=== PATIENT | male | born 1945 | race Caucasian/White ===

== ENCOUNTER 2018-05-01 11:18 | Outpatient (CLI) | payer MEDICARE | END 2018-05-01 11:19 | disposition home or self-care (01) | LOC: CTENTCT 11:18 | PROVIDERS: ATTEND Specialist | DX: J32.8 Other chronic sinusitis (principal) | CPT/HCPCS: 70486 ==

== ENCOUNTER 2018-05-14 13:00 | Day surgery (SDC) | payer MEDICARE ==
[2018-05-13 12:47] VITALS: BMI 27.8
[2018-05-14] MEDS ORDERED: Oxymetazoline HCl 0.05% ( 15 ML ) ONE ×2 (16:03→16:42)
[2018-05-14 16:19] LABS: Hemoglobin 15.4 g/dL (14.0-18.0)
[2018-05-14 16:37] LABS: Anion Gap 12 mmol/L (10-20); BUN (Urea Nitrogen) 18 mg/dL (8.4-25.7); Calc. Creatinine Clearance 70 mL/min (70-130); Calcium 9.6 mg/dL (7.8-10.44); Carbon Dioxide 27 mmol/L (23-31); Chloride 95 mmol/L (98-107); Estimated GFR-MDRD 61; Glucose 90 mg/dL (83-110); Potassium 4.1 mmol/L (3.5-5.1); Sodium 130 mmol/L (136-145)
[2018-05-14] MEDS ORDERED: Lidocaine 1% w/Epinephrine 1:100K 20 ML VIAL ONE (16:42)
[2018-05-14] MEDS ORDERED: Fentanyl 100 MCG/2 ML VIAL ONE (16:43)
[2018-05-14] MEDS ORDERED: Lidocaine 1% PF 5 ML VIAL ONE (16:57)
[2018-05-14] MEDS ORDERED: Rocuronium Bromide 10 MG/ML (10ML VIAL) ONE (16:57)
[2018-05-14] MEDS ORDERED: Glycopyrrolate 0.2 MG/ML 5 ML SYRINGE ONE (16:57)
[2018-05-14] MEDS ORDERED: Ondansetron PF 4 MG/2 ML Vial ONE (16:57)
[2018-05-14] MEDS ORDERED: Dexamethasone 20 MG/5 ML VIAL ONE (16:57)
[2018-05-14] MEDS ORDERED: PROPOFOL 200 MG/20 ML VIAL ONE (16:57)
--- NOTE | 2018-05-14 17:58 | OP ---
DATE OF PROCEDURE: 05/14/2018 PREOPERATIVE DIAGNOSES: Chronic sinusitis, recurrent sinusitis, and nasal polyposis. POSTOPERATIVE DIAGNOSES: Chronic sinusitis, recurrent sinusitis, and nasal polyposis. PROCEDURES PERFORMED: 1. Bilateral nasal endoscopy with maxillary antrostomy with removal of tissue. 2. Bilateral nasal endoscopy with total ethmoidectomy. 3. Bilateral nasal endoscopy with sphenoidotomy. 4. Bilateral nasal endoscopy with frontal sinusotomy. PROCEDURE IN DETAIL: BILATERAL NASAL ENDOSCOPY WITH MAXILLARY ANTROSTOMY WITH REMOVAL OF TISSUE: The uncinate was then identified and the extent of the uncinate was appreciated by out-fracturing the uncinate with the ball-tip probe. We then used the sickle blade to disarticulate the uncinate from the lateral nasal wall. This was then removed with straight biting and upbiting punches with the remaining shrouds of mucosa and bony septum removed with the micro-debrider. The natural os of the maxillary sinus was then identified and enlarged with the maxillary punches and back biting forceps. BILATERAL NASAL ENDOSCOPY WITH TOTAL ETHMOIDECTOMY: The anterior face of the ethmoid bulla was entered and with the micro-debrider, dissection continued posteriorly to the ground lamella. The limits of dissection included the insertion of the middle turbinate, medial orbital wall, and base of skull. We similarly identified the frontal recess and removed shrouds of bone and debris in that region to obtain patency into the agger nasi region and frontal recess. We then entered the ground lamella and its anteroinferior aspect and proceeded posteriorly, opening the posterior ethmoid air-cell system. Again, the limits of dissection included the base of skull and medial orbital wall. BILATERAL NASAL ENDOSCOPY WITH SPHENOIDOTOMY: The anterior face of the sphenoid was identified and entered in its extreme anteroinferior aspect. A sphenoid punch was then used to enlarge the sphenoidotomy and no injury to the optic nerve or internal carotid artery occurred. BILATERAL NASAL ENDOSCOPY WITH FRONTAL SINUSOTOMY: Following the ethmoidectomy, we then turned our attention to the frontal nasal recess. The agger nasi cells were addressed and the frontal recess was exposed. The natural opening to the frontal sinus was identified. At this point, any obstructing shrouds of mucosa and bony fragments were removed with a curved microdebrider. The wound was then examined and found to be free of any obstructing debris. We then turned our attention to the contralateral side and performed a similar procedure again under endoscopic visualization using a 45-degree scope. We were able to visualize the frontal recess. Obstructing shrouds of mucosa and bone were removed with a microdebrider. The natural os of frontal sinus was identified and enlarged and irrigated. At this point, the frontal sinusotomy was completed and we turned to the next area of concern. Job ID: [id number]
[2018-05-14] MEDS ORDERED: traMADol HCl 50 MG TAB ONE (18:58)
== END 2018-05-14 19:52 | disposition home or self-care (01) ==
LOC: SDC 13:00
PROVIDERS: ATTEND Specialist
PROC: 09TV8ZZ Resection of Left Ethmoid Sinus, Via Natural or Artificial Opening Endoscopic (ICD-10-PCS; principal; 2018-05-14)
PROC: 09TU8ZZ Resection of Right Ethmoid Sinus, Via Natural or Artificial Opening Endoscopic (ICD-10-PCS; 2018-05-14)
PROC: 09BR8ZZ Excision of Left Maxillary Sinus, Via Natural or Artificial Opening Endoscopic (ICD-10-PCS; 2018-05-14)
PROC: 09BQ8ZZ Excision of Right Maxillary Sinus, Via Natural or Artificial Opening Endoscopic (ICD-10-PCS; 2018-05-14)
PROC: 099T8ZZ Drainage of Left Frontal Sinus, Via Natural or Artificial Opening Endoscopic (ICD-10-PCS; 2018-05-14)
PROC: 099W8ZZ Drainage of Right Sphenoid Sinus, Via Natural or Artificial Opening Endoscopic (ICD-10-PCS; 2018-05-14)
PROC: 099X8ZZ Drainage of Left Sphenoid Sinus, Via Natural or Artificial Opening Endoscopic (ICD-10-PCS; 2018-05-14)
PROC: 099S8ZZ Drainage of Right Frontal Sinus, Via Natural or Artificial Opening Endoscopic (ICD-10-PCS; 2018-05-14)
DX: J32.8 Other chronic sinusitis (principal); J34.2 Deviated nasal septum; J33.9 Nasal polyp, unspecified; M26.603 Bilateral temporomandibular joint disorder, unspecified; J30.1 Allergic rhinitis due to pollen; J30.81 Allergic rhinitis due to animal (cat) (dog) hair and dander; J30.89 Other allergic rhinitis; E78.00 Pure hypercholesterolemia, unspecified; I10 Essential (primary) hypertension; Z79.02 Long term (current) use of antithrombotics/antiplatelets; Z79.82 Long term (current) use of aspirin; Z79.899 Other long term (current) drug therapy; Z88.5 Allergy status to narcotic agent; Z98.890 Other specified postprocedural states
CPT/HCPCS: 36415; 80048; 85014; 85018; 93005; 93010; J1100; J2001; J2405; J2704; J3010

== ENCOUNTER 2018-05-17 21:22 | Inpatient (IN) | payer MEDICARE ==
[2018-05-17 21:52] LABS: Bilirubin Negative (Negative); Blood, Urine Negative (Negative); Clarity CLEAR (Clear); Glucose, Urine (Dipstick) Negative (Negative); Leukocyte Negative (Negative); Nitrite Negative (Negative); Protein, Urine (Dipstick) Negative (Neg-Trace); Specific Gravity, Urine 1.017 (1.002-1.036); Urobilinogen 0.2 mg/dL (0.2-1.0)
[2018-05-17 22:02] LABS: #Eosinphils 0.1 thou/uL (0.0-0.7); #Lymphocytes 1.4 thou/uL (1.20-3.40); #Monocytes 0.9 thou/uL (0.11-0.59); #Neutrophils 7.9 thou/uL (1.40-6.50); %Eosinophils 0.9 % (0.0-10.0); %Lymphocytes 13.6 % (21.0-51.0); %Monocytes 8.5 % (0.0-10.0); Hemoglobin 14.4 g/dL (14.0-18.0); Mean Corpuscular HGB CONC 35.6 g/dL (32.0-36.0); Mean Corpuscular Hemoglobin 32.4 pg (27.0-31.0); Mean Platelet Volume 5.9 fL (7.4-10.4); Platelet Count 269 thou/uL (130-400); RBC Distribution Width 11.1 % (11.5-14.5); Red Blood Cell (RBC) Count 4.45 mill/uL (4.70-6.10); White Blood Cell (WBC) Count 10.3 thou/uL (4.8-10.8)
[2018-05-17] MEDS ORDERED: Metoclopramide HCl 10 MG/2 ML VIAL ONE (22:17)
[2018-05-17] MEDS ORDERED: diphenhydrAMINE 50 MG/ML VIAL ONE (22:17)
[2018-05-17 22:23] LABS: ALT (SGPT) 24 U/L (8-55); AST (SGOT) 23 U/L (5-34); Albumin 4.2 g/dL (3.4-4.8); Alkaline Phosphatase 54 U/L (40-150); Anion Gap 12 mmol/L (10-20); BUN (Urea Nitrogen) 14 mg/dL (8.4-25.7); Calc. Creatinine Clearance 0 mL/min (70-130); Calcium 9.1 mg/dL (7.8-10.44); Carbon Dioxide 26 mmol/L (23-31); Chloride 81 mmol/L (98-107); Estimated GFR-MDRD 76; Globulin 2.7 g/dL (2.4-3.5); Glucose 115 mg/dL (83-110); Lipase 45 U/L (8-78); Potassium 3.5 mmol/L (3.5-5.1); Protein, Total 6.9 g/dL (5.8-8.1)
[2018-05-17 22:31] LABS: Sodium 115 mmol/L (136-145)
--- NOTE | 2018-05-17 22:48 | RAD ---
CHEST ONE VIEW: HISTORY: Cough. Sinus surgery on . Headaches. Nausea, vomiting, and diarrhea. FINDINGS: Heart size is within normal limits. Probable small left pleural effusion. Bibasilar parenchymal mag nges, having an appearance that certainly cold be consistent with some subsegmental atelectasis or mi ld bibasilar pneumonitis. The mid and upper lung zones are clear. IMPRESSION: 1. Small left pleural effusion and bibasilar parenchymal changes, evidence for minimal subsegmental atelectasis or mild pneumonitis. 2. Atherosclerosis of the aorta. POS: [facility]
--- NOTE | 2018-05-17 23:14 | PDOC.FPRHP ---
Addendum entered and electronically signed by Monica Sommers MD 05/18/18 04:10 : holding HCTZ for hyponatremia Original Note: - History of Present Illness Chief Complaint: Nausea/Vomiting/Diarrhea History of Present Illness: Mr Correia is a 73yo male with pmh of HTN, HLD, CAD presenting with OSHEA, nausea, vomiting and diarrhea. He had sinus surgery on and was nauseated when he came out of the operating room. He started seeing Dr. Henning in March for headaches, cough, congestion and was on a steroid taper. They gave him abx, no relief. He went to ENT and he saw Dr. Bose who also gave him an antibiotics and steroid shot - still no relief. Then after CT recommended sinus surgery. The n/v was persisting and he has also had diarrhea today, 3-4X. ED Course: Reglan 10mg, Benadryl 25mg, NS 1L - Allergies/Adverse Reactions Allergies Allergy/AdvReac Type Severity Reaction Status Date / Time codeine AdvReac Mild Nausea Verified 05/18/18 00:58 - Home Medications Medication Instructions Recorded Confirmed Type Aspirin [Aspir-Low] 81 mg PO DAILY 05/13/18 05/18/18 History Clopidogrel Bisulfate [Clopidogrel] 75 mg PO DAILY 05/13/18 05/18/18 History Losartan/Hydrochlorothiazide 1 each PO DAILY 05/13/18 05/18/18 History [Losartan-Hctz 100-25 mg Tab] Metoprolol Succinate [Toprol XL] 25 mg PO DAILY 05/13/18 05/18/18 History Red Yeast Rice 600 mg PO BID 05/13/18 05/18/18 History Acetaminophen ER (8hr) [TYLENOL ER 650 mg PO Q4H PRN 05/18/18 05/18/18 History (8hr ARTHRITIS PAIN)] Acetaminophen [Tylenol] 1,000 mg PO Q6HR PRN 05/18/18 05/18/18 History Moxifloxacin HCl 400 mg PO DAILY 05/18/18 05/18/18 History Promethazine [Phenergan] 25 mg PO Q4HR PRN 05/18/18 05/18/18 History Tamsulosin HCl [Flomax] 0.4 mg PO DAILY 05/18/18 05/18/18 History - History PMHx: HTN, HLD, CAD, deviated septum PSHx: Stent placement x5, sinus surgery 05/2017, cataract surgery BL FHx: Dad - prostate cancer, Mother - cirrhosis Social: Denies t/a/d, lives with - Review of Systems General: reports: fever/chills (endorses chills), other (headache (temporal) Denies confusion) Eyes: denies: eye pain, vision changes ENT: denies: nasal congestion, rhinorrhea Respiratory: denies: cough, congestion Cardiovascular: denies: chest pain, palpitation Gastrointestinal: reports: nausea, vomiting, diarrhea. denies: constipation Genitourinary: reports: other (decreased UOP). denies: dysuria Skin: denies: rashes, lesions Musculoskeletal: reports: other (headache). denies: stiffness, swelling Neurological: reports: weakness (generalized). denies: numbness, syncope - Vital signs BP: 141/79 HR: 83 RR: 18 Tmax: 98.2 Pox: 96% on RA Wt: 90.72 - Physical Exam Constitutional: NAD, awake, alert and oriented, well developed, other (appears fatigued) HEENT: normocephalic and atraumatic, EOMI, conjunctiva clear, TM's clear and intact, other (dry MM left pupil sluggish to react) Neck: supple, trachea midline Heart: RRR Lungs: CTAB, no respiratory distress, good air movement Abdomen: soft, non-tender, bowel sounds present, other (no CVA tenderness) Musculoskeletal: normal structure, normal tone, ROM grossly normal Neurological: no focal deficit, other (wrist casting room helper 5/5, arm flexion/extension 5/5 , planterflexion/dorsiflexion 5/5. Bilateral.) Skin: no rash/lesions, capillary refill <2 seconds Psychiatric: normal mood and affect, good judgment and insight, intact recent and remote memory FMR H&P: Results - Labs Result Diagrams: 05/17/18 21:52 05/18/18 05:51 Lab results: WBC 10.3 thou/uL (4.8-10.8) 05/17/18 21:52 Hgb 14.4 g/dL (14.0-18.0) 05/17/18 21:52 Hct 40.5 % (42.0-52.0) L 05/17/18 21:52 MCV 91.0 fL (78.0-98.0) 05/17/18 21:52 Plt Count 269 thou/uL (130-400) 05/17/18 21:52 Neutrophils % 77.0 % (42.0-75.0) H 05/17/18 21:52 Sodium 115 mmol/L (136-145) L* 05/17/18 21:52 Potassium 3.5 mmol/L (3.5-5.1) 05/17/18 21:52 Chloride 81 mmol/L (98-107) L 05/17/18 21:52 Carbon Dioxide 26 mmol/L (23-31) 05/17/18 21:52 BUN 14 mg/dL (8.4-25.7) 05/17/18 21:52 Creatinine 0.96 mg/dL (0.7-1.3) 05/17/18 21:52 Glucose 115 mg/dL (83-110) H 05/17/18 21:52 Calcium 9.1 mg/dL (7.8-10.44) 05/17/18 21:52 Total Bilirubin 1.0 mg/dL (0.2-1.2) 05/17/18 21:52 AST 23 U/L (5-34) 05/17/18 21:52 ALT 24 U/L (8-55) 05/17/18 21:52 Alkaline Phosphatase 54 U/L (40-150) 05/17/18 21:52 Serum Total Protein 6.9 g/dL (5.8-8.1) 05/17/18 21:52 Albumin 4.2 g/dL (3.4-4.8) 05/17/18 21:52 Lipase 45 U/L (8-78) 05/17/18 21:52 Urine Ketones Negative mg/dL (Negative) 05/17/18 21:31 Urine Blood Negative (Negative) 05/17/18 21:31 Urine Nitrite Negative (Negative) 05/17/18 21:31 Ur Leukocyte Esterase Negative (Negative) 05/17/18 21:31 - Radiology Interpretation CT scan - head Status: report reviewed by me Additional comment: No significant acute process. No mass or bleed. Extensive sinus mucosal change and minimal fluid as well as nasal turbinate congestion. Chest x-ray Status: report reviewed by me Additional comment: Small left pleural effusion and bibasilar parencymal changes evidence for minimal subsegmental atelectasis or mild pneumonitis. Atherosclerosis of aorta. FMR H&P: A/P - Problem List (1) Hyponatremia Current Visit: Yes Status: Acute Code(s): E87.1 - HYPO-OSMOLALITY AND HYPONATREMIA (2) Hypertension Current Visit: Yes Status: Acute Code(s): I10 - ESSENTIAL (PRIMARY) HYPERTENSION (3) Hyperlipidemia Current Visit: Yes Status: Acute Code(s): E78.5 - HYPERLIPIDEMIA, UNSPECIFIED (4) CAD (coronary artery disease) Current Visit: Yes Status: Acute Code(s): I25.10 - ATHSCL HEART DISEASE OF [place] CORONARY ARTERY W/O ANG PCTRS - Plan Mr Correia is a 73yo male with pmh of HTN, HLD, CAD presenting with OSHEA, nausea, vomiting and diarrhea likely 2/2 hyponatremia after recent sinus surgery Hyponatremia - Initial 115 - SIADH following sinus surgery vs hypovolemic hyponatremia - Urine Osm 623, ordered urine Na - Received 1L NS in ED - TSH ordered - Will recheck BMP and trend Headache - CT: ongoing inflammation in sinuses - Toradol PRN for pain Nausea/Vomiting - Metoclopramide with no relief today - S/p Reglan and Benadryl in ED - Zofran and phenergan PRN Diarrhea - Recent antibiotic use, consider c diff studies if continues CAD - Continue home metoprolol, clopidogrel Recent sinus surgery - Continue home Moxifloxacin BPH - Continue Tamsulosin HTN - Continue home losartan HLD - Continue home med, will need to have pt bring in med as it is not available through our pharmacy. Abnormal CXR findings - Small left pleural effusion/bibasilar parencymal changes evidence for minimal subsegmental atelectasis - likely due to recent surgery. Not hypoxic, no complaint of SOB Code Status: FULL DVT ppx: Lovenox FMR H&P: Upper Level - Pertinent history 73 yo M with PMHx CAD, HTN, HLD here POD #3 after sinus surgery with n/v/d found to have hyponatremia. He reports the n/v started directly after getting out of the OR. He has had persistent headache and n/v, today along with diarrhea. He had minimal relief with tramadol prescribed and they were unable to control symptoms at home so came in. - Pertinent findings Gen: awake, alert, appears uncomfortable HEENT: NCAT, sinuses without drainage CV: RRR, no murmur RESP: CTAB ABD: soft, NTND EXT: no edema, pulses 2+ throughout NEURO: CN grossly intact, strength preserved throughout, L pupil minimally reactive at 2 mm. R pupil 3 -> 2 mm. Difficult to ascertain if this is chronic or acute as he has had BL cataract surgery. - Plan Date/Time: 05/17/18 2309 73 yo M POD#3 from sinus surgery, here with hyponatremia 1. Hyponatremia: N/V following sinus surgery, suspect hypovolemic hyponatremia. Will check urine studies. s/p 1L NS in ED. Will check repeat BMP prior to starting fluids. DDX includes SIADH. Neuro exam unremarkable apart from less reactive pupil on L (constricted). May be medication effect vs. chronic change after cataract surgery. Continue to monitor. 2. Headache: CT negative for acute process but showed ongoing inflammation in sinuses. Will give toradol, monitor BMP and additional pain meds as indicated. s /p reglan in ED 3. N/V: Zofran/phenergan PRN 4. Diarrhea: If persistent, would check c diff/stool studies. 5. CAD: Home meds 6. HTN/HLD: Home meds I, Gena Vigil MD, PGY-3, have evaluated this patient and agree with findings/ plan as outlined by wildlife biology internship resident. Pertinent changes/additions are listed here. Addendum - Attending - Attending Attestation Date/Time: 05/18/18 0692 I personally evaluated the patient and discussed the management with Dr. Sommers /Musa. I agree with the History, Examination, Assessment and Plan documented above with any addition or exceptions noted below. Patient with Hx recent sinus surgery presenting with 3 days of headache, nausea , vomiting. Sodium 5 days ago noted to be 130 and chronic but noted to be 115 on admission here. Reports poor PO intake since his surgery. No new medication changes. Exam benign. Based on labs, suspect multifactorial hypotonic hyponatremic due to poor intake as well as likely postsurgical SIADH or medication effect from HCTZ/Losartan in setting of poor intake. Holding that medication. Giving gentle IV fluids at this time and monitor closely. Level now 116. Sodium q4h. If drops again, would recommend 3% saline 100ml over 3 hours. Patient does already feel somewhat improved. No abrupt neurological change. After at safer range can likely resume normal activities while holding meds and expect continued improvement. Will monitor closely to ensure not overcorrecting. Continue other home meds.
--- NOTE | 2018-05-17 23:32 | CT ---
CT BRAIN WITHOUT IV CONTRAST: HISTORY: Altered mental status. Prior sinus surgery on . Headache. Nausea, vomiting, and diarrhea. FINDINGS: Extensive sinus mucosal changes involving the maxillary, ethmoid, frontal, and sphenoid sinuses, with minimal fluid in the sphenoid sinus and some nasal turbinate congestion. The mastoids are clear of acute process. There is no focal mass or midline shift. No intraaxial or extraaxial hemorrhage. IMPRESSION: No significant acute intracranial process. No mass or bleed. Extensive sinus mucosal change and min imal fluid, as well as nasal turbinate congestion. POS: [facility]
[2018-05-18 00:04] LABS: Osmolality, Serum 247 mOsm/kg (280-295)
[2018-05-18] MEDS ORDERED: Ondansetron PF 4 MG/2 ML Vial IVP PRN (00:52)
[2018-05-18] MEDS ORDERED: Ondansetron ODT 4 MG TAB PO PRN (00:52)
[2018-05-18] MEDS ORDERED: Promethazine HCl 25 MG/ML VIAL IM PRN (00:52)
[2018-05-18] MEDS ORDERED: Ketorolac Tromethamine 30 MG/ML VIAL IVP PRN (00:52)
[2018-05-18 01:08] VITALS: BMI 28.7
[2018-05-18 01:48] LABS: Anion Gap 14 mmol/L (10-20); BUN (Urea Nitrogen) 12 mg/dL (8.4-25.7); Calc. Creatinine Clearance 100 mL/min (70-130); Calcium 8.1 mg/dL (7.8-10.44); Carbon Dioxide 19 mmol/L (23-31); Chloride 85 mmol/L (98-107); Estimated GFR-MDRD 89; Glucose 99 mg/dL (83-110); Potassium 3.9 mmol/L (3.5-5.1)
[2018-05-18 01:53] LABS: Sodium 114 mmol/L (136-145)
[2018-05-18] MEDS ORDERED: Ketorolac Tromethamine 30 MG/ML VIAL IVP SCH ×2 (02:00→06:00)
[2018-05-18] MEDS ORDERED: Acetaminophen ER (8hr) 650 MG TAB PO PRN (04:08)
[2018-05-18] MEDS ORDERED: Sodium Chloride 0.9% 1,000 ML IV SCH (05:15)
--- NOTE | 2018-05-18 05:57 | PDOC.FM ---
- Subjective Subjective: Pt resting in bed. Doing well at this time. A&Ox3. No recent fever or chills. Denies any chest pain or SOB. Denies any vision changes, dizziness or lightheadness. Denies any numbness or tingling. Denies any weakness at this time. No acute events overnight reported. - Objective MAR Reviewed: Yes Vital Signs & Weight: Vital Signs (12 hours) Temp Pulse Resp BP Pulse Ox 05/18/18 04:52 97.7 F 70 18 125/78 92 L 05/18/18 00:45 98.1 F 75 18 133/77 94 L Weight Weight 93.485 kg Result Diagrams: 05/17/18 21:52 05/18/18 05:51 EKG Reviewed by me: Yes Radiology Reviewed by me: Yes Radiology: Head CT: No acute intracranial process. No mass or bleed. Extensive sinus mucosal change and minimal fluid, as well as nasal turbinate congestion. CXRAY: Shows small pleural effusion. Phys Exam - Physical Examination Constitutional: NAD HEENT: PERRLA, moist MMs Neck: no nodes, supple, full ROM some mild rales bilaterally in lower lobes Cardiovascular: RRR, no significant murmur, no rub Gastrointestinal: soft, non-tender, no distention, positive bowel sounds Musculoskeletal: no edema, pulses present Neurological: normal sensation, moves all 4 limbs Lymphatic: no nodes Psychiatric: normal affect, A&O x 3 Skin: no rash, normal turgor Dx/Plan (1) Hyponatremia Code(s): E87.1 - HYPO-OSMOLALITY AND HYPONATREMIA Status: Acute (2) CAD (coronary artery disease) Code(s): I25.10 - ATHSCL HEART DISEASE OF [place] CORONARY ARTERY W/O ANG PCTRS Status: Acute (3) Hyperlipidemia Code(s): E78.5 - HYPERLIPIDEMIA, UNSPECIFIED Status: Acute (4) Hypertension Code(s): I10 - ESSENTIAL (PRIMARY) HYPERTENSION Status: Acute - Plan Plan: Hyponatremia - Initial 115-->114-->116 - SIADH following sinus surgery vs hypovolemic hyponatremia - Urine Osm 623, Urine Na 136 - Received 1L NS in ED - TSH normal - NS @ 150 ml/hr. Will check BMP routinely and adjust as needed Headache - CT: ongoing inflammation in sinuses - Toradol PRN for pain Nausea/Vomiting - Zofran and phenergan PRN Diarrhea - Recent antibiotic use, consider c diff studies if continues CAD - Continue home metoprolol, clopidogrel Recent sinus surgery - Continue home Moxifloxacin. Will have pt take home med as not available. Will switch to levoquin if not able to take home med. BPH - Continue Tamsulosin HTN - Continue home losartan HLD - Continue home med, will need to have pt bring in med as it is not available through our pharmacy. Abnormal CXR findings - Small left pleural effusion/bibasilar parencymal changes evidence for minimal subsegmental atelectasis - likely due to recent surgery. Not hypoxic, no complaint of SOB. -continue monitor vital signs. Addendum - Attending - Attending Attestation Date/Time: 05/18/18 0652 I personally evaluated the patient and discussed the management with Dr. Cardenas. I agree with the History, Examination, Assessment and Plan documented above with any addition or exceptions noted below. See H&P with addendum dated 05/18/18 for full attending attestation.
[2018-05-18 06:29] LABS: Anion Gap 10 mmol/L (10-20); BUN (Urea Nitrogen) 12 mg/dL (8.4-25.7); Calc. Creatinine Clearance 86 mL/min (70-130); Calcium 8.2 mg/dL (7.8-10.44); Carbon Dioxide 26 mmol/L (23-31); Chloride 84 mmol/L (98-107); Estimated GFR-MDRD 75; Glucose 87 mg/dL (83-110); Potassium 3.5 mmol/L (3.5-5.1)
[2018-05-18 06:34] LABS: Sodium 116 mmol/L (136-145)
[2018-05-18] MEDS ORDERED: Losartan 25 MG TAB PO SCH (09:00)
[2018-05-18] MEDS ORDERED: RED YEAST RICE 600 MG PO SCH (09:00)
[2018-05-18] MEDS: Ketorolac Tromethamine 30 MG/ML VIAL IVP SCH ×3 (09:02→21:06)
[2018-05-18] MEDS: Tamsulosin HCl 0.4 MG CAP PO SCH (09:03)
[2018-05-18] MEDS: Clopidogrel Bisulfate 75 MG TAB PO SCH (09:04)
[2018-05-18] MEDS: MOXIFLOXACIN HCL 400 MG PO SCH (09:04)
[2018-05-18] MEDS: Aspirin 81 mg Enteric Coated Tablet PO SCH (09:04)
[2018-05-18] MEDS: Enoxaparin Sodium 40 MG/0.4 ML SYRINGE SC SCH (09:13)
[2018-05-18 10:24] LABS: Anion Gap 10 mmol/L (10-20); BUN (Urea Nitrogen) 12 mg/dL (8.4-25.7); Calc. Creatinine Clearance 83 mL/min (70-130); Calcium 8.4 mg/dL (7.8-10.44); Carbon Dioxide 25 mmol/L (23-31); Chloride 83 mmol/L (98-107); Estimated GFR-MDRD 71; Glucose 98 mg/dL (83-110); Potassium 3.3 mmol/L (3.5-5.1)
[2018-05-18 10:27] LABS: Sodium 115 mmol/L (136-145)
[2018-05-18] MEDS ORDERED: Sodium Chloride 3% 100 ML IVPB SCH ×2 (10:45→17:30)
[2018-05-18] MEDS ORDERED: Potassium Chloride 20 MEQ TAB PO SCH (10:45)
[2018-05-18 13:13] LABS: Anion Gap 11 mmol/L (10-20); BUN (Urea Nitrogen) 12 mg/dL (8.4-25.7); Calc. Creatinine Clearance 80 mL/min (70-130); Calcium 8.3 mg/dL (7.8-10.44); Carbon Dioxide 25 mmol/L (23-31); Chloride 85 mmol/L (98-107); Estimated GFR-MDRD 69; Glucose 86 mg/dL (83-110); Potassium 3.7 mmol/L (3.5-5.1)
[2018-05-18 13:18] LABS: Sodium 117 mmol/L (136-145)
[2018-05-18 14:43] LABS: Anion Gap 10 mmol/L (10-20); BUN (Urea Nitrogen) 12 mg/dL (8.4-25.7); Calc. Creatinine Clearance 77 mL/min (70-130); Calcium 8.3 mg/dL (7.8-10.44); Carbon Dioxide 26 mmol/L (23-31); Chloride 85 mmol/L (98-107); Estimated GFR-MDRD 66; Glucose 104 mg/dL (83-110); Potassium 3.9 mmol/L (3.5-5.1)
[2018-05-18 14:49] LABS: Sodium 117 mmol/L (136-145)
[2018-05-18 20:34] LABS: Anion Gap 12 mmol/L (10-20); BUN (Urea Nitrogen) 17 mg/dL (8.4-25.7); Calc. Creatinine Clearance 74 mL/min (70-130); Calcium 8.2 mg/dL (7.8-10.44); Carbon Dioxide 24 mmol/L (23-31); Chloride 89 mmol/L (98-107); Estimated GFR-MDRD 63; Glucose 105 mg/dL (83-110); Sodium 121 mmol/L (136-145)
--- NOTE | 2018-05-19 06:44 | PDOC.FM ---
- Subjective Subjective: Pt up in bed this morning. Pt A&Ox3. Pt denies any acute concerns overnight. Pt denies any chest pain or SOB. Pt denies any headaches, vision changes, or dizziness at this time. Denies n/v/d/c. Denies any numbness or tingling. - Objective MAR Reviewed: Yes Vital Signs & Weight: Vital Signs (12 hours) Temp Pulse Resp BP Pulse Ox 05/19/18 05:10 98.3 F 81 18 144/83 H 93 L 05/19/18 00:35 98.1 F 81 16 157/91 H 95 05/18/18 20:35 98.2 F 92 16 127/81 93 L 05/18/18 19:42 93 L Weight Weight 93.485 kg I&O: 05/17/18 05/18/18 05/19/18 06:59 06:59 06:59 Intake Total 630 3235 Output Total 575 2100 Balance 55 1135 Result Diagrams: 05/17/18 21:52 05/18/18 20:05 Radiology Reviewed by me: Yes (No new imaging to review this AM) Phys Exam - Physical Examination Constitutional: NAD HEENT: PERRLA, moist MMs Neck: no nodes, supple, full ROM Respiratory: no wheezing, no rhonchi, clear to auscultation bilateral Cardiovascular: RRR, no significant murmur, no rub Gastrointestinal: soft, non-tender, no distention, positive bowel sounds Musculoskeletal: no edema, pulses present Neurological: non-focal, normal sensation, moves all 4 limbs Psychiatric: normal affect, A&O x 3 Skin: no rash, normal turgor, cap refill <2 seconds Dx/Plan (1) Hyponatremia Code(s): E87.1 - HYPO-OSMOLALITY AND HYPONATREMIA Status: Acute (2) CAD (coronary artery disease) Code(s): I25.10 - ATHSCL HEART DISEASE OF [place] CORONARY ARTERY W/O ANG PCTRS Status: Acute (3) Hyperlipidemia Code(s): E78.5 - HYPERLIPIDEMIA, UNSPECIFIED Status: Acute (4) Hypertension Code(s): I10 - ESSENTIAL (PRIMARY) HYPERTENSION Status: Acute - Plan Plan: Hyponatremia - 121 on last check. BMP pening. - SIADH following sinus surgery vs hypovolemic hyponatremia vs HCTZ/Losartan use. - Urine Osm 623, Urine Na 136 -Recieved 200ml 3% NS yesterday. Free water restricted at this time. - TSH normal Headache - CT: ongoing inflammation in sinuses - Toradol PRN for pain Nausea/Vomiting - Zofran and phenergan PRN Diarrhea - Recent antibiotic use, -Denied any new diarrhea, C. diff negative. CAD - Continue home metoprolol, clopidogrel Recent sinus surgery - Continue home Moxifloxacin. Will have pt take home med as not available. Will switch to levoquin if not able to take home med. BPH - Continue Tamsulosin HTN - hold losartan as possible culprit of Hyponatremia. Restart once corrected. HLD - Continue home med, will need to have pt bring in med as it is not available through our pharmacy. Abnormal CXR findings - Small left pleural effusion/bibasilar parencymal changes evidence for minimal subsegmental atelectasis - likely due to recent surgery. Not hypoxic, no complaint of SOB. -continue monitor vital signs. Addendum - Attending - Attending Attestation Date/Time: 05/19/18 6836 I personally evaluated the patient and discussed the management with Dr. Cardenas. I agree with the History, Examination, Assessment and Plan documented above with any addition or exceptions noted below. Patient feeling improved, continues to have headache with cough. Awaiting AM plasma sodium level. Continue free water restriction and encourage solute intake. If decreasing, will consult Nephrology. Consider salt tab use. Post op SIADH versus medication effect or both as likely cause of symptoms.
[2018-05-19] MEDS: Ketorolac Tromethamine 30 MG/ML VIAL IVP PRN ×2 (06:55→17:36)
[2018-05-19 07:28] LABS: Anion Gap 12 mmol/L (10-20); BUN (Urea Nitrogen) 15 mg/dL (8.4-25.7); Calc. Creatinine Clearance 78 mL/min (70-130); Calcium 8.9 mg/dL (7.8-10.44); Carbon Dioxide 24 mmol/L (23-31); Chloride 95 mmol/L (98-107); Estimated GFR-MDRD 67; Glucose 92 mg/dL (83-110); Potassium 4.2 mmol/L (3.5-5.1); Sodium 127 mmol/L (136-145)
[2018-05-19] MEDS: Enoxaparin Sodium 40 MG/0.4 ML SYRINGE SC SCH (08:23)
[2018-05-19] MEDS: Clopidogrel Bisulfate 75 MG TAB PO SCH (08:23)
[2018-05-19] MEDS: Tamsulosin HCl 0.4 MG CAP PO SCH (08:23)
[2018-05-19] MEDS: Aspirin 81 mg Enteric Coated Tablet PO SCH (08:23)
[2018-05-19] MEDS: MOXIFLOXACIN HCL 400 MG PO SCH (08:24)
[2018-05-19] MEDS ORDERED: Sodium Chloride 3% 100 ML IVPB SCH (08:45)
[2018-05-19] MEDS ORDERED: RED YEAST RICE 600 MG PO SCH (09:00)
[2018-05-19 10:24] LABS: Anion Gap 13 mmol/L (10-20); BUN (Urea Nitrogen) 17 mg/dL (8.4-25.7); Calc. Creatinine Clearance 77 mL/min (70-130); Calcium 8.5 mg/dL (7.8-10.44); Carbon Dioxide 21 mmol/L (23-31); Chloride 97 mmol/L (98-107); Estimated GFR-MDRD 65; Glucose 86 mg/dL (83-110); Potassium 4.1 mmol/L (3.5-5.1); Sodium 127 mmol/L (136-145)
[2018-05-19 12:48] LABS: Anion Gap 12 mmol/L (10-20); BUN (Urea Nitrogen) 16 mg/dL (8.4-25.7); Calc. Creatinine Clearance 70 mL/min (70-130); Calcium 8.8 mg/dL (7.8-10.44); Carbon Dioxide 22 mmol/L (23-31); Chloride 95 mmol/L (98-107); Estimated GFR-MDRD 58; Glucose 121 mg/dL (83-110); Potassium 4.2 mmol/L (3.5-5.1); Sodium 125 mmol/L (136-145)
[2018-05-19 14:47] LABS: Anion Gap 11 mmol/L (10-20); BUN (Urea Nitrogen) 16 mg/dL (8.4-25.7); Calc. Creatinine Clearance 72 mL/min (70-130); Carbon Dioxide 25 mmol/L (23-31); Chloride 95 mmol/L (98-107); Estimated GFR-MDRD 60; Glucose 96 mg/dL (83-110); Potassium 4.2 mmol/L (3.5-5.1); Sodium 127 mmol/L (136-145)
[2018-05-19] MEDS ORDERED: Sodium Chloride 1 GM TAB PO SCH (17:00)
[2018-05-19 17:34] LABS: Sodium 130 mmol/L (136-145)
[2018-05-19 18:12] VITALS: BP 125/71; TEMP 98.2
--- NOTE | 2018-05-20 14:18 | DIS ---
DATE OF ADMISSION: 05/17/2018 DATE OF DISCHARGE: 05/19/2018 RESIDENT: Benjamin Cardenas MD, PGY-2. CONSULTATIONS: None. PROCEDURES: None. IMAGING: Got a brain CT on 05/17/2018, which showed no significant acute intracranial processes. No mass or bleed. Extensive sinus mucosal change of minimal fluids, as well as nasal turbinate congestion. On 05/17/2018, he got a chest x-ray which showed: 1. Small left pleural effusion, bibasilar parenchymal changes. Evidence for minimal subsegmental atelectasis or mild pneumonitis. 2. Atherosclerosis of the aorta. PRIMARY DIAGNOSES: Hospital diagnosis includes: 1. Severe hyponatremia, likely secondary to medication and SIADH. 2. Headache from recent sinus surgery. 3. Coronary artery disease. 4. BPH. 5. Hypertension. 6. Hyperlipidemia. 7. Small left pleural effusion. DISCHARGE MEDICATIONS: Discontinued medications are losartan and hydrochlorothiazide combined medication. Medications he was continued on include: 1. Tessalon Perles 100 mg p.o. t.i.d. 2. Sodium chloride 1 g tablets p.o. b.i.d. 3. Acetaminophen 1000 mg p.o. q.6 hours as needed. 4. Aspirin 81 mg p.o. daily. 5. Clopidogrel 75 mg p.o. daily. 6. Toprol-XL 25 mg p.o. daily. 7. Moxifloxacin 400 mg p.o. daily. 8. Phenergan 25 mg p.o. q.4 hours. 9. Red yeast rice 600 mg p.o. b.i.d. 10. Tamsulosin 0.4 mg daily. HISTORY OF PRESENT ILLNESS/BRIEF HOSPITAL COURSE: This is a 73-year-old male with past medical history of hypertension, hyperlipidemia, and coronary artery disease who presented with headache, nausea, vomiting, and diarrhea. He had surgery on , the day before coming in. He has been having cough and congestion. He has been on steroid taper for multiple months. He saw ENT, Dr. Bose, given antibiotics and did the CT surgery. The nausea and vomiting still persisted when he presented and he had diarrhea episodes of 3 to 4 times a day. When we came in, he was a little bit altered and somewhat confused. He was found to have a sodium of 115. His serum osmolality was 247. His UA was negative. His urine osmolality was 623 and his urine sodium was 136. At this time, he was started on normal saline at a rate of 150 the first day. His sodium would actually drop to 114 and then go up to 116. On the night of admission, he only dropped from 115 to 114, so on the , we did a dose of 3% normal saline 100 mL infused over 3 hours, it would go up from 114 to 116 and down to 115. At this time, we started him on another 3% normal saline and again 100 mL over 2 hours, he went up to 117 on recheck on 05/18. Finally 8 o'clock at night on 05/18, it was 121. The next day on 05/19, it was 127. It would go from 127 to 125 to 127 and finally to 130. On the last two days, we did free water restriction and encouraged him to drink soda and Gatorade and continue to improve. On 05/18, the patient was no longer having as bad of headaches with no longer having nausea or vomiting. We think this could all be contributed to his hyponatremia. We believe his hyponatremia caused from the recent surgery and being on the hydrochlorothiazide medicine, so we stopped his hydrochlorothiazide and it was a combined medicine with losartan, so we continued to watch the blood pressure, his blood pressure never really went up above 130/80, continued to stay stable. We never needed to add any other medicine at this time. On discharge, the patient was still having a little bit of cough, so we gave him Tessalon Perles and also sent him over on some salt tabs. Encouraged him to follow up with Dr. Henning by this Friday. DISPOSITION: Stable. DISCHARGE LOCATION: Home. ACTIVITY: As tolerated. DIET: Heart healthy diet, but also free water restricted until he sees Dr. Henning by Friday. FOLLOWUP: Need to follow up with Dr. Henning within 3 days for hospital followup. Job ID: [id number]
== END 2018-05-19 18:46 | disposition home or self-care (01) | DRG 641 ==
LOC: ERS 21:22 → T4-B 23:03
PROVIDERS: ADMIT Student in an Organized Health Care Education/Training Program; ATTEND Student in an Organized Health Care Education/Training Program
DX: E87.1 Hypo-osmolality and hyponatremia (principal); J90 Pleural effusion, not elsewhere classified; I10 Essential (primary) hypertension; E78.5 Hyperlipidemia, unspecified; I25.10 Atherosclerotic heart disease of native coronary artery without angina pectoris; N40.0 Benign prostatic hyperplasia without lower urinary tract symptoms
CPT/HCPCS: 36415; 70450; 71045; 80048; 80053; 81003; 83690; 83930; 83935; 84300; 84443; 84484; 85014; 85018; 85025; 87324; 87449; 87804; 93005; 93010; 96365; 96375; J1100; J1200; J1650; J1885; J2001; J2405; J2704; J2765; J3010; J7131

== ENCOUNTER 2018-07-21 10:14 | Outpatient (CLI) | payer MEDICARE ==
--- NOTE | 2018-07-21 10:33 | RAD ---
Exam: Chest 2 views HISTORY:Dyspnea Comparison: 05/17/2018 FINDINGS: Lungs: Mild patchy left basilar opacity is present Cardiac silhouette:Stable Pulmonary vessels: Normal Pleural Spaces: No significant effusion Pneumothorax: None Osseous abnormalities: None of acuity. IMPRESSION: Stable patchy left basilar density
== END 2018-07-21 10:15 | disposition home or self-care (01) ==
LOC: RAD 10:14
PROVIDERS: ATTEND Internal Medicine
DX: R06.00 Dyspnea, unspecified (principal)
CPT/HCPCS: 71046

== ENCOUNTER 2018-11-13 15:00 | Outpatient (CLI) | payer MEDICARE | END 2018-11-13 15:01 | disposition home or self-care (01) | LOC: SLEEPLAB 15:00 | PROVIDERS: ATTEND Internal Medicine | DX: G47.33 Obstructive sleep apnea (adult) (pediatric) (principal); R51 Headache; R06.83 Snoring; R35.1 Nocturia; I10 Essential (primary) hypertension; I25.10 Atherosclerotic heart disease of native coronary artery without angina pectoris | CPT/HCPCS: 95806 ==

== ENCOUNTER 2019-01-12 12:30 | Outpatient (CLI) | payer MEDICARE | END 2019-01-12 12:31 | disposition home or self-care (01) | LOC: CP 12:30 | PROVIDERS: ATTEND Internal Medicine | DX: R06.09 Other forms of dyspnea (principal); R05 Cough | CPT/HCPCS: 80053; 80061; 81003; 85025; 94060; 94727; 94729; G0103; 36415 ==

== ENCOUNTER 2019-02-14 04:15 | Emergency (ER) | payer MEDICARE ==
[2019-02-14] MEDS ORDERED: Morphine 4 MG/ML VIAL ONE (04:50)
[2019-02-14] MEDS ORDERED: Ondansetron PF 4 MG/2 ML Vial ONE (04:50)
[2019-02-14 05:04] LABS: #Basophils 0.1 thou/uL (0.0-0.2); #Eosinphils 0.3 thou/uL (0.0-0.7); #Lymphocytes 2.5 thou/uL (1.20-3.40); #Monocytes 0.6 thou/uL (0.11-0.59); #Neutrophils 4.4 thou/uL (1.40-6.50); %Basophils 1.1 % (0.0-1.0); %Eosinophils 3.9 % (0.0-10.0); %Lymphocytes 31.8 % (21.0-51.0); %Neutrophils 55.2 % (42.0-75.0); Hemoglobin 16.2 g/dL (14.0-18.0); Mean Corpuscular HGB CONC 32.8 g/dL (32.0-36.0); Mean Corpuscular Volume 91.5 fL (78.0-98.0); Mean Platelet Volume 6.8 fL (7.4-10.4); Platelet Count 246 thou/uL (130-400); RBC Distribution Width 11.6 % (11.5-14.5); White Blood Cell (WBC) Count 7.9 thou/uL (4.8-10.8)
[2019-02-14 05:11] LABS: PTT 52.9 SEC (22.9-36.1)
[2019-02-14 05:26] LABS: ALT (SGPT) 33 U/L (8-55); AST (SGOT) 31 U/L (5-34); Albumin 4.8 g/dL (3.4-4.8); Alkaline Phosphatase 63 U/L (40-110); Anion Gap 15 mmol/L (10-20); BUN (Urea Nitrogen) 21 mg/dL (8.4-25.7); Bilirubin, Total 0.8 mg/dL (0.2-1.2); Calc. Creatinine Clearance 0 mL/min (70-130); Carbon Dioxide 26 mmol/L (23-31); Chloride 100 mmol/L (98-107); Estimated GFR-MDRD 50; Globulin 3.7 g/dL (2.4-3.5); Glucose 102 mg/dL (83-110); Lipase 53 U/L (8-78); Potassium 3.9 mmol/L (3.5-5.1); Protein, Total 8.5 g/dL (5.8-8.1); Sodium 137 mmol/L (136-145)
[2019-02-14 05:57] LABS: Bilirubin Negative (Negative); Blood, Urine Negative (Negative); Clarity Clear (Clear); Glucose, Urine (Dipstick) Normal (Negative); Leukocyte Negative Leu/uL (Negative); Nitrite Negative (Negative); Protein, Urine (Dipstick) Negative (Neg-Trace); Urobilinogen Normal mg/dL (Less than 2)
--- NOTE | 2019-02-14 08:20 | CT ---
PRELIMINARY REPORT/[facility]/EMERGENCY AFTER HOURS PROCEDURE: PROCEDURE INFORMATION: Exam: CT Abdomen And Pelvis With Contrast Exam date and time: 02/14/2019 5:46 AM Clinical history: 73 years old, male; Abdominal pain; Patient HX: Er 1. Rlq pain for a week. Worse la st night. Denies any vomiting TECHNIQUE: Imaging protocol: Computed tomography of the abdomen and pelvis with intravenous contrast. COMPARISON: No relevant prior studies available. FINDINGS: Liver: There are no focal liver lesions identified. Gallbladder and bile ducts: The gallbladder is normal. There is no evidence of biliary ductal dilatio n. Pancreas: The pancreas appears normal. No ductal dilatation. Spleen: The spleen is normal. Adrenals: The adrenal glands are normal. Kidneys and ureters: The kidneys appear normal. No hydronephrosis. Stomach and bowel: The stomach is normal. The duodenum is unremarkable. Appendix: A normal appendix is identified. Intraperitoneal space: Unremarkable. No free air. No significant fluid collection. Vasculature: Unremarkable. No abdominal aortic aneurysm. Lymph nodes: Unremarkable. No enlarged lymph nodes. Bladder: Unremarkable as visualized. Reproductive: Unremarkable as visualized. Bones/joints: There are healed lateral right rib fractures. Soft tissues: Unremarkable. IMPRESSION: No acute abdominal pelvic pathology. Thank you for allowing us to participate in the care of your patient. Dictated and Authenticated by: Jesus Redmond MD 02/14/2019 6:27 AM Central Time ([place] & [place]) FINAL REPORT CT ABDOMEN AND PELVIS WITH CONTRAST: HISTORY: Abdominal pain. COMPARISON: None. FINDINGS: The hepatic steatosis. Mild atelectasis lung bases. No acute inflammatory process in the abdomen or p samuel. The appendix is visualized and is normal. IMPRESSION: Findings and impression are concordant with the preliminary report. Transcribed Date/Time: 02/14/2019 8:30 AM
[2019-02-14] MEDS ORDERED: Iopamidol 370 76% 100 ML VIAL ONE (12:00)
== END 2019-02-14 07:43 | disposition home or self-care (01) ==
LOC: ERS 04:15
DX: R10.31 Right lower quadrant pain (principal); I10 Essential (primary) hypertension; E78.5 Hyperlipidemia, unspecified; Z79.899 Other long term (current) drug therapy; Z79.01 Long term (current) use of anticoagulants
CPT/HCPCS: 36415; 74177; 80053; 81003; 83690; 85025; 85610; 85730; 86850; 86900; 86901; 93005; 96374; 96375; J2270; J2405; Q9967

== ENCOUNTER 2022-09-13 18:20 | Observation (INO) | payer MEDICARE ==
[~2022-09-13 18:20] MED LIST: Iopamidol-370 76% 500 ML MDV (1 ML CHARGE) ONE
[2022-09-13 19:29] LABS: #Eosinphils 0.3 thou/uL (0.0-0.7); #Monocytes 1.2 thou/uL (0.11-0.59); #Neutrophils 7.4 thou/uL (1.40-6.50); %Basophils 0.2 % (0.0-1.0); %Eosinophils 2.4 % (0.0-10.0); %Lymphocytes 18.5 % (21.0-51.0); %Monocytes 10.9 % (0.0-10.0); %Neutrophils 67.5 % (42.0-75.0); Hemoglobin 14.9 g/dL (14.0-18.0); Mean Corpuscular HGB CONC 33.4 g/dL (32.0-36.0); Mean Corpuscular Hemoglobin 30.2 pg (27.0-31.0); Mean Corpuscular Volume 90.5 fl (78.0-98.0); Mean Platelet Volume 9.3 fL (7.4-10.4); Platelet Count 242 10x3/uL (130-400); RBC Distribution Width 12.4 % (11.5-14.5); Red Blood Cell (RBC) Count 4.93 mill/uL (4.70-6.10)
[2022-09-13 19:52] LABS: ALT (SGPT) 14 U/L (8-55); AST (SGOT) 16 U/L (5-34); Albumin 4.5 g/dL (3.4-4.8); Alkaline Phosphatase 69 U/L (40-110); Anion Gap 16 mmol/L (10-20); BUN (Urea Nitrogen) 17 mg/dL (8.4-25.7); Bilirubin, Total 0.7 mg/dL (0.2-1.2); Calc. Creatinine Clearance 0 mL/min (70-130); Calcium 9.7 mg/dL (7.8-10.44); Carbon Dioxide 24 mmol/L (23-31); Chloride 98 mmol/L (98-107); Estimated GFR 55; Globulin 3.1 g/dL (2.4-3.5); Glucose 103 mg/dL (83-110); Potassium 4.4 mmol/L (3.5-5.1); Protein, Total 7.6 g/dL (5.8-8.1); Sodium 134 mmol/L (136-145)
[2022-09-13] MEDS ORDERED: Morphine 4 MG/ML VIAL ONE (20:55)
[2022-09-13] MEDS ORDERED: Ondansetron PF 4 MG/2 ML Vial ONE (20:57)
[2022-09-13] MEDS ORDERED: Glucagon 1 MG/ML KIT IM PRN (22:41)
[2022-09-13] MEDS ORDERED: Dextrose 5% in Water 1,000 ML IV PRN (22:41)
[2022-09-13] MEDS ORDERED: Dextrose 50% Abboject 50 ML SYRINGE SLOW IVP PRN (22:41)
[2022-09-13] MEDS ORDERED: hydrALAZINE 20 MG/ML VIAL SLOW IVP PRN (22:41)
[2022-09-13] MEDS ORDERED: Morphine 4 MG/ML VIAL SLOW IVP PRN (22:41)
[2022-09-13] MEDS ORDERED: Ondansetron PF 4 MG/2 ML Vial IVP PRN (22:41)
[2022-09-13] MEDS ORDERED: Sodium Chloride 0.9% 1,000 ML IV SCH (22:45)
[2022-09-13] MEDS ORDERED: Piperacillin/Tazobactam 3.375 GM in Sodium Chloride 0.9% 100 ML IVPB SCH (22:45)
[2022-09-13] MEDS ORDERED: Piperacillin/Tazobactam 3.375 GM VIAL ONE (22:54)
[2022-09-13] MEDS: Morphine 2 MG/ML VIAL SLOW IVP PRN (23:59)
[2022-09-14 00:26] VITALS: BMI 27.1
[2022-09-14] MEDS: Piperacillin/Tazobactam 3.375 GM in Sodium Chloride 0.9% 100 ML IVPB SCH ×3 (03:17→20:25)
[2022-09-14] MEDS: Morphine 2 MG/ML VIAL SLOW IVP PRN ×2 (05:31→11:07)
[2022-09-14 06:01] LABS: #Eosinphils 0.4 thou/uL (0.0-0.7); #Monocytes 1.1 thou/uL (0.11-0.59); #Neutrophils 5.3 thou/uL (1.40-6.50); %Basophils 0.2 % (0.0-1.0); %Eosinophils 4.2 % (0.0-10.0); %Lymphocytes 24.4 % (21.0-51.0); %Monocytes 12.4 % (0.0-10.0); %Neutrophils 58.2 % (42.0-75.0); Hemoglobin 13.7 g/dL (14.0-18.0); Mean Corpuscular HGB CONC 33.5 g/dL (32.0-36.0); Mean Corpuscular Hemoglobin 30.6 pg (27.0-31.0); Mean Corpuscular Volume 91.5 fl (78.0-98.0); Mean Platelet Volume 9.6 fL (7.4-10.4); Platelet Count 216 10x3/uL (130-400); RBC Distribution Width 12.5 % (11.5-14.5); Red Blood Cell (RBC) Count 4.47 mill/uL (4.70-6.10)
[2022-09-14 06:25] LABS: Anion Gap 15 mmol/L (10-20); BUN (Urea Nitrogen) 15 mg/dL (8.4-25.7); Calc. Creatinine Clearance 64 mL/min (70-130); Calcium 9.3 mg/dL (7.8-10.44); Carbon Dioxide 22 mmol/L (23-31); Chloride 99 mmol/L (98-107); Estimated GFR 64; Glucose 84 mg/dL (83-110); Magnesium 1.6 mg/dL (1.6-2.6); Phosphorus 3.2 mg/dL (2.3-4.7); Potassium 3.9 mmol/L (3.5-5.1); Sodium 132 mmol/L (136-145)
[2022-09-14 06:26] LABS: Troponin I Less than 0.010 ng/mL (< 0.028)
[2022-09-14] MEDS: Famotidine/PF 20 mg/2ml Vial SLOW IVP SCH ×2 (08:52→20:26)
[2022-09-14] MEDS ORDERED: SUGAMMADEX SODIUM 200 MG/2 ML VIAL ONE (12:16)
[2022-09-14] MEDS ORDERED: fentaNYL PF 100 MCG/2 ML SYRINGE ONE (12:16)
[2022-09-14] MEDS ORDERED: Bupivacaine/Epinephrine 0.25% 30 ML VIAL ONE (12:36)
[2022-09-14] MEDS ORDERED: Rocuronium Bromide 10 MG/ML (10ML VIAL) ONE (12:51)
[2022-09-14] MEDS ORDERED: PROPOFOL 200 MG/20 ML VIAL ONE (12:51)
[2022-09-14] MEDS ORDERED: NEOSTIGMINE 3 MG/3 ML SYR 3 MG/3 ML SYRINGE ONE (12:51)
[2022-09-14] MEDS ORDERED: Dexamethasone 20 MG/5 ML VIAL ONE (12:51)
[2022-09-14] MEDS ORDERED: Succinylcholine 200 MG/10 ml SYRINGE FS ONE (12:51)
[2022-09-14] MEDS ORDERED: Lidocaine 1% PF 5 ML VIAL ONE (12:51)
[2022-09-14] MEDS ORDERED: GLYCOPYRROLATE/PF 0.2 MG/ML VIAL ONE (12:51)
[2022-09-14] MEDS ORDERED: PHENYLEPHRINE-NS 100 MCG/ML 10 ML SYRINGE ONE (12:51)
[2022-09-14] MEDS ORDERED: Ondansetron PF 4 MG/2 ML Vial ONE (12:51)
[2022-09-14] MEDS ORDERED: Morphine Sulfate 2 MG/ML SYRINGE SLOW IVP PRN (13:59)
[2022-09-14] MEDS ORDERED: Promethazine HCl 25 MG/ML VIAL IM PRN (13:59)
[2022-09-14] MEDS ORDERED: Ondansetron HCl/PF 4 MG/2 ML Vial IVP PRN (13:59)
[2022-09-14] MEDS ORDERED: HYDROmorphone 2 MG/ML VIAL SLOW IVP PRN (13:59)
[2022-09-14] MEDS ORDERED: fentaNYL 50 mcg/mL 1 mL Vial ONE (14:25)
[2022-09-15] MEDS: Piperacillin/Tazobactam 3.375 GM in Sodium Chloride 0.9% 100 ML IVPB SCH (04:43)
[2022-09-15 06:30] LABS: Bilirubin Negative (Negative); Blood, Urine Negative (Negative); Clarity Clear (Clear); Glucose, Urine (Dipstick) Normal (Negative); Ketone, Urine 10 mg/dL (Negative); Leukocyte Negative Leu/uL (Negative); Nitrite Negative (Negative); Protein, Urine (Dipstick) 20 mg/dL (Neg-Trace); RBC/HPF 0-3 HPF (0-3); Specific Gravity, Urine 1.026 (1.002-1.036); Squamous Epithelial 0-3 HPF (0-3); Urobilinogen Normal mg/dL (Less than 2); WBC/HPF 0-3 HPF (0-3); pH, Urine 5.5 (5.0-9.0)
[2022-09-15 06:34] LABS: Bacteria/HPF 1+ HPF (None Seen)
[2022-09-15] MEDS: Famotidine/PF 20 mg/2ml Vial SLOW IVP SCH (09:00)
[2022-09-15] MEDS ORDERED: Tamsulosin HCl 0.4 MG CAP PO SCH (09:00)
[2022-09-15] MEDS ORDERED: traMADol HCl 50 MG TAB PO PRN (11:42)
[2022-09-15 11:58] VITALS: BP 132/68; TEMP 97.8
[2022-09-15] MEDS ORDERED: Acetaminophen 500 MG TAB PO SCH (12:00)
[2022-09-16] MEDS ORDERED: Tamsulosin HCl 0.4 MG CAP PO SCH (09:00)
[2022-09-16] MEDS ORDERED: Losartan 25 MG TAB PO SCH (09:00)
[2022-09-16] MEDS ORDERED: Clopidogrel Bisulfate 75 MG TAB PO SCH (09:00)
== END 2022-09-15 12:09 | disposition home or self-care (01) ==
LOC: ERS 18:20 → SURG A 22:06
PROVIDERS: ADMIT Surgery; ATTEND Surgery
PROC: 0DTJ4ZZ Resection of Appendix, Percutaneous Endoscopic Approach (ICD-10-PCS; principal; 2022-09-13)
DX: K35.80 Unspecified acute appendicitis (principal); M54.2 Cervicalgia; M54.9 Dorsalgia, unspecified; M25.511 Pain in right shoulder; I12.9 Hypertensive chronic kidney disease with stage 1 through stage 4 chronic kidney disease, or unspecified chronic kidney disease; N18.9 Chronic kidney disease, unspecified; E78.5 Hyperlipidemia, unspecified; I25.10 Atherosclerotic heart disease of native coronary artery without angina pectoris; N40.0 Benign prostatic hyperplasia without lower urinary tract symptoms; Z95.810 Presence of automatic (implantable) cardiac defibrillator; Z98.49 Cataract extraction status, unspecified eye; Z79.899 Other long term (current) drug therapy
CPT/HCPCS: 44970; 51701; 71045; 71275; 74174; 80048; 80053; 81001; 83735; 84100; 84484 ×2; 85025 ×2; 86850; 86900; 86901; 93005; 94760; 96365; 96375 ×2; 96376 ×4; 99285; C1776; G0378 ×4; J3010; J3490; 36415; 88304; 96374; A4649; J1100; J2270; J2272; J2405; J2543; J2704; J7050; Q9967; S0028

== ENCOUNTER 2023-03-01 15:00 | Emergency (ER) | payer MEDICARE ==
[2023-03-01 15:34] LABS: #Eosinphils 0.1 thou/uL (0.0-0.7); #Monocytes 0.9 thou/uL (0.11-0.59); #Neutrophils 10.5 thou/uL (1.40-6.50); %Basophils 0.2 % (0.0-1.0); %Eosinophils 0.4 % (0.0-10.0); %Lymphocytes 10.1 % (21.0-51.0); %Monocytes 6.8 % (0.0-10.0); Hematocrit 45.7 % (42.0-52.0); Hemoglobin 15.9 g/dL (14.0-18.0); Mean Corpuscular HGB CONC 34.8 g/dL (32.0-36.0); Mean Corpuscular Hemoglobin 31.7 pg (27.0-31.0); Platelet Count 205 10x3/uL (130-400); RBC Distribution Width 13.6 % (11.5-14.5); Red Blood Cell (RBC) Count 5.02 mill/uL (4.70-6.10); White Blood Cell (WBC) Count 12.8 10x3/uL (4.8-10.8)
[2023-03-01 15:55] LABS: ALT (SGPT) 24 U/L (8-55); AST (SGOT) 21 U/L (5-34); Albumin 4.5 g/dL (3.4-4.8); Alkaline Phosphatase 61 U/L (40-110); Anion Gap 14 mmol/L (10-20); BUN (Urea Nitrogen) 17 mg/dL (8.4-25.7); Bilirubin, Total 0.7 mg/dL (0.2-1.2); Calc. Creatinine Clearance 0 mL/min (70-130); Calcium 9.3 mg/dL (7.8-10.44); Carbon Dioxide 24 mmol/L (23-31); Chloride 100 mmol/L (98-107); Estimated GFR 52; Globulin 3.2 g/dL (2.4-3.5); Glucose 148 mg/dL (83-110); Potassium 3.8 mmol/L (3.5-5.1); Protein, Total 7.7 g/dL (5.8-8.1); Sodium 134 mmol/L (136-145)
[2023-03-01 17:42] LABS: Troponin I Less than 0.010 ng/mL (< 0.028)
== END 2023-03-01 19:05 | disposition home or self-care (01) ==
LOC: ERS 15:00
DX: R55 Syncope and collapse (principal); I10 Essential (primary) hypertension; E78.5 Hyperlipidemia, unspecified; Z79.899 Other long term (current) drug therapy
CPT/HCPCS: 36415; 71045; 80053; 83880; 84484; 85025; 93005; 96360

== ENCOUNTER 2024-06-02 10:42 | Emergency (ER) | payer MEDICARE ==
[2024-06-02] MEDS ORDERED: diphenhydrAMINE 50 MG/ML VIAL ONE (10:58)
[2024-06-02] MEDS ORDERED: Acetaminophen 500 MG TAB ONE (10:58)
[2024-06-02] MEDS ORDERED: Metoclopramide HCl 10 MG (2 mL) VIAL ONE (10:58)
[2024-06-02 11:34] LABS: #Basophils 0.03 10x3/uL (0.0-0.2); %Basophils 0.2 % (0.0-1.0); %Eosinophils 1.4 % (0.0-10.0); %Lymphocytes 20.6 % (21.0-51.0); %Monocytes 10.1 % (0.0-10.0); %Neutrophils 67.2 % (42.0-75.0); Hematocrit 45.1 % (42.0-52.0); Hemoglobin 15.5 g/dL (14.0-18.0); Mean Corpuscular HGB CONC 34.4 g/dL (32.0-36.0); Mean Corpuscular Hemoglobin 31.6 pg (27.0-31.0); Mean Platelet Volume 9.4 fL (7.4-10.4); Platelet Count 243 10x3/uL (130-400); RBC Distribution Width 13.5 % (11.5-14.5)
[2024-06-02] MEDS ORDERED: Ketorolac Tromethamine 30 MG (1 mL) VIAL ONE (11:43)
[2024-06-02] MEDS ORDERED: methylPREDNISolone Sod Succ/PF 125 MG/2 ML VIAL ONE ×2 (11:43→11:47)
[2024-06-02] MEDS ORDERED: Morphine 4 MG/ML VIAL ONE (12:38)
[2024-06-02] MEDS ORDERED: Magnesium 2 GM/50 ML BAG (IN WATER) ONE (12:38)
[2024-06-02 13:51] LABS: ALT (SGPT) 21 U/L (Less than 45); AST (SGOT) 22 U/L (11-34); Albumin 3.9 g/dL (3.1-4.5); Alkaline Phosphatase 73 U/L (40-110); Anion Gap 13 mmol/L (10-20); BUN (Urea Nitrogen) 16 mg/dL (8.4-25.7); Bilirubin, Total 0.6 mg/dL (0.3-1.2); Calc. Creatinine Clearance 0 mL/min (70-130); Calcium 9.1 mg/dL (7.8-10.44); Carbon Dioxide 24 mmol/L (23-31); Chloride 103 mmol/L (98-107); Estimated GFR 55; Globulin 3.7 g/dL (2.4-3.5); Glucose 93 mg/dL (83-110); Potassium 3.7 mmol/L (3.5-5.1); Protein, Total 7.6 g/dL (5.8-8.1); Sodium 136 mmol/L (136-145)
== END 2024-06-02 14:30 | disposition home or self-care (01) ==
LOC: ERS 10:42
DX: R51.9 Headache, unspecified (principal); M48.02 Spinal stenosis, cervical region; I10 Essential (primary) hypertension
CPT/HCPCS: 70450; 72125; 80053; 85025; 96374; 96375; 99284; J1200; J1885; J2270; J2765; J2919; J3475; 36415

== ENCOUNTER 2024-11-22 12:29 | Emergency (ER) | payer MEDICARE | END 2024-11-22 13:51 | disposition home or self-care (01) | LOC: ERS 12:29 | DX: M54.2 Cervicalgia (principal); I10 Essential (primary) hypertension; E78.5 Hyperlipidemia, unspecified; M48.00 Spinal stenosis, site unspecified; Z95.5 Presence of coronary angioplasty implant and graft | CPT/HCPCS: 96372; 99282; J2270 ==